=== PATIENT | female | born 1970 | race African-American/Black ===

== ENCOUNTER 2017-04-20 10:33 | Emergency (ER) | payer BC ==
[2017-04-20] MEDS ORDERED: traMADol HCl 50 MG TAB ONE (11:31)
[2017-04-20] MEDS ORDERED: Ondansetron ODT 4 MG TAB ONE (11:31)
--- NOTE | 2017-04-20 12:00 | RAD ---
CHEST 1 VIEW: HISTORY: Cough. Chest pain. COMPARISON: 10/28/16. FINDINGS: Cardiac silhouette is magnified by projection. Pulmonary vasculature is unremarkable. Mediastinum i s midline. Small irregular-shaped density overlying the left chest and supraclavicular levels has th e appearance of extrinsic artifact. IMPRESSION: No active cardiopulmonary abnormalities are demonstrated. POS: [facility]
== END 2017-04-20 12:02 | disposition home or self-care (01) ==
LOC: SCSER 10:33
DX: B34.9 Viral infection, unspecified (principal); E11.9 Type 2 diabetes mellitus without complications; I10 Essential (primary) hypertension; F17.210 Nicotine dependence, cigarettes, uncomplicated; F32.9 Major depressive disorder, single episode, unspecified; Z79.899 Other long term (current) drug therapy; Z79.84 Long term (current) use of oral hypoglycemic drugs
CPT/HCPCS: 71045; Q0162

== ENCOUNTER 2019-02-14 21:00 | Emergency (ER) | payer SELFPAY ==
[2019-02-14] MEDS ORDERED: Ketorolac Tromethamine 30 MG/ML VIAL ONE (21:22)
== END 2019-02-14 22:00 | disposition home or self-care (01) ==
LOC: SCSER 21:00
DX: J11.1 Influenza due to unidentified influenza virus with other respiratory manifestations (principal); E11.9 Type 2 diabetes mellitus without complications; I10 Essential (primary) hypertension; F32.9 Major depressive disorder, single episode, unspecified; F17.210 Nicotine dependence, cigarettes, uncomplicated; Z79.899 Other long term (current) drug therapy; Z79.84 Long term (current) use of oral hypoglycemic drugs
CPT/HCPCS: 96372; 99283; J1885

== ENCOUNTER 2021-09-22 09:18 | Outpatient (CLI) | payer OTHER | END 2021-09-22 09:19 | disposition home or self-care (01) | LOC: BICRAD 09:18 | PROVIDERS: ATTEND Internal Medicine | DX: Z02.71 Encounter for disability determination (principal); M47.816 Spondylosis without myelopathy or radiculopathy, lumbar region | CPT/HCPCS: 72100 ==